=== PATIENT | female | born 1950 | race Caucasian/White ===

== ENCOUNTER 2022-09-15 09:39 | Emergency (ER) | payer BC ==
[~2022-09-15] VITALS: Ht 165.1 cm; Wt 67.1 kg
--- NOTE | 2022-09-15 09:57 | NUR ---
BIB [facility] C/O LEFT BODY PAIN ON AND OFF SINCE AUGUST 28. SHE'S ON GABAPENTIN, MELOXICAM AND DICLOFENAC LEFT SHOULDER UPPER EXT RADIATING TO LOWER EXT. KRUPA BLE OR WITH LIMITATION OF MOVEMENT. NOT IN CR DISTRESS AOX4. EMD AT BEDSIDE FOR EVAL. AWAITING FOR MD ORDERS
[2022-09-15] MEDS ORDERED: KETOROLAC TROMETHAMINE INJ 30 MG/ML VIAL ONE (10:04)
--- NOTE | 2022-09-15 10:20 | NUR ---
ATTEMPTED TO CALL THE [facility], NO ANSWER. LEFT VOICEMAIL MESSAGE.
--- NOTE | 2022-09-15 10:26 | NUR ---
PT LYING ON BED COMFORTABLY. NURSING CARE DONE
[2022-09-15] MEDS ORDERED: KETOROLAC TROMETHAMINE INJ 60 MG/2 ML VIAL IM ONE (10:30)
--- NOTE | 2022-09-15 11:17 | NUR ---
PT PAIN NOW 11/22. TO USE THE BNATHROOM
--- NOTE | 2022-09-15 11:25 | NUR ---
SCRUB NURSE AT BEDSIDE TAKING XRAY
[2022-09-15] MEDS ORDERED: LORA-259 PO (11:38)
[2022-09-15 11:51] VITALS: BP 150/75
== END 2022-09-15 12:13 | disposition home or self-care (01) ==
LOC: ER 09:45
DX: M79.10 Myalgia, unspecified site (principal); M79.602 Pain in left arm; M79.605 Pain in left leg; G89.29 Other chronic pain; I10 Essential (primary) hypertension; F41.9 Anxiety disorder, unspecified
CPT/HCPCS: 99283; 96372; 73030; J1885